=== PATIENT | male | born 1980 | race Caucasian/White ===

== ENCOUNTER 2017-10-08 17:11 | Emergency (ER) | payer MEDICAID ==
[~2017-10-08] VITALS: Ht 160 cm; Wt 78.9 kg
[2017-10-08 17:23] VITALS: BP 120/80; PULSE 100; RESP 16; TEMP 99.7; O2SAT 96
[2017-10-08] MEDS ORDERED: IBUPROFEN 800 MG TAB PO ONE (17:45)
--- NOTE | 2017-10-08 18:05 | PD ---
HPI Chief Complaint: Cold / Flu Symptoms Time Seen by Provider: 17:36 Travel History International Travel<30 days: No Contact w/Intl Traveler<30days: No Traveled to known affect area: No History of Present Illness HPI Patient is a 37-year-old male presenting to the emergency department for evaluation of headache, sore throat, cough, nasal congestion. Patient symptoms started 2 days ago. He has been taking extra strength Tylenol occasionally with no improvement of symptoms. Symptoms started gradually, getting worse which prompted his visit to emergency department today. He denies any nausea, vomiting, documented fevers, abdominal pain, chest pain or shortness of breath. He reports that when he coughs that worsens his headache. His headache pain is an 8/10 states it's throbbing. Headache is unrelieved with Tylenol. He does report a history of headaches in the past. Denies any visual changes. PFSH Past Medical History Medical History: Denies Significant Hx Past Surgical History Surgical History: No Previous Surgery Social History Alcohol Use: No Tobacco Use: No Substance Use: No Allergies-Medications (Allergen,Severity, Reaction): Coded Allergies: No Known Allergies (Unverified , 10/08/17) Reported Meds & Prescriptions Reported Meds & Active Scripts Active No Active Prescriptions or Reported Medications Review of Systems Except as stated in HPI: all other systems reviewed are Neg General / Constitutional: Positive: Chills, No: Fever Eyes: No: Blurred Vision HENT: Positive: Headaches, Sore Throat, Rhinitis, Congestion, No: Neck Pain, Earache Cardiovascular: No: Chest Pain or Discomfort Respiratory: Positive: Cough Gastrointestinal: No: Nausea, Vomiting, Abdominal Pain Physical Exam Narrative GENERAL: Well-developed, well-nourished, alert male. Appears uncomfortable, in no acute distress. SKIN: Warm and dry. HEAD: Atraumatic. Normocephalic. EYES: Pupils equal and round. No scleral icterus. No injection or drainage. ENT: No nasal bleeding or discharge. Mucous membranes pink and moist. Mild erythematous posterior pharynx with 1+ tonsillar hypertrophy. NECK: Trachea midline. No JVD. No meningeal signs noted. CARDIOVASCULAR: Regular rate and rhythm. RESPIRATORY: No accessory muscle use. Clear to auscultation. Breath sounds equal bilaterally. GASTROINTESTINAL: Abdomen soft, non-tender, nondistended. Hepatic and splenic margins not palpable. MUSCULOSKELETAL: Extremities without clubbing, cyanosis, or edema. No obvious deformities. NEUROLOGICAL: Awake and alert. No obvious cranial nerve deficits. Motor grossly within normal limits. Five out of 5 muscle strength in the arms and legs. Normal speech. PSYCHIATRIC: Appropriate mood and affect; insight and judgment normal. Data Data Last Documented VS Vital Signs Date Time Temp Pulse Resp B/P (MAP) Pulse Ox O2 Delivery O2 Flow Rate FiO2 10/08/17 17:23 99.7 100 16 120/80 (93) 96 Orders Orders Group A Rapid Strep Screen (10/08/17 17:41) Influenzae A/B Antigen (10/08/17 17:41) Ibuprofen (Motrin) (10/08/17 17:45) Chest, Pa & Lat (10/08/17 ) Strep Culture (Group A) (10/08/17 17:45) Ct Brain W/O Iv Contrast(Rout) (10/08/17 ) Iv Access Insert/Monitor (10/08/17 18:37) Prochlorperazine Inj (Compazine Inj) (10/08/17 18:45) Diphenhydramine Inj (Benadryl Inj) (10/08/17 18:45) Sodium Chlor 0.9% 1000 Ml Inj (Ns 1000 M (10/08/17 18:37) MDM Medical Decision Making Medical Screen Exam Complete: Yes Emergency Medical Condition: Yes Interpretation(s) Vital Signs Date Time Temp Pulse Resp B/P (MAP) Pulse Ox O2 Delivery O2 Flow Rate FiO2 10/08/17 17:23 99.7 100 16 120/80 (93) [address] 10/08/17 0000 Signed Impressions: Service Date/Time: Sunday, October 08, 2017 18:47 - CONCLUSION: 1. Partial opacification of the right maxillary sinus. 2. Normal CT brain without evidence of acute infarct, hemorrhage, mass or edema. Philip Hart MD Chest X-Ray 10/08/17 0000 Signed Impressions: Service Date/Time: Sunday, October 08, 2017 17:47 - CONCLUSION: Bibasilar airspace disease. Philip Hart MD Vital Signs Date Time Temp Pulse Resp B/P (MAP) Pulse Ox O2 Delivery O2 Flow Rate FiO2 10/08/17 17:23 99.7 100 16 120/80 (93) 96 Differential Diagnosis Viral syndrome versus strep versus influenza versus pneumonia versus other Narrative Course Patient is a 37-year-old male presented to emergency department with cold and flulike symptoms. He presented with a headache that appear more viral in nature initially. Patient's vital signs assessed, he has a very low-grade temp and is borderline tachycardic. Influenza and strep screen ordered and pending, chest x-ray ordered. Patient continued to complain of an excruciating headache despite ibuprofen, for this reason a CT scan of the brain was ordered. Chest x-ray which is read by the radiologist shows bibasilar airspace disease. Strep and influenza are both negative. Patient was given IV fluids, Benadryl and Compazine. He was reassessed after medication administration. He is resting comfortably, he reports an improvement in his headache. CT scan of the brain which is read by the radiologist shows partial opacity location of the right maxillary sinus. Normal CT of the brain without evidence of acute infarct, hemorrhage, mass or edema. Patient will be discharged home after administration of IV fluids. He will be given oral antibiotics as well as fluticasone nasal spray. He is encouraged to maintain adequate oral intake. He was encouraged to follow up with primary doctor return to emergency department for any new or worsening symptoms. Patient verbalizes understanding of instructions. Patient is stable for discharge. Diagnosis Primary Impression: Maxillary sinusitis Qualified Codes: J01.00 - Acute maxillary sinusitis, unspecified Additional Impression: Pneumonia Qualified Codes: J18.9 - Pneumonia, unspecified organism Referrals: [facility] Primary Care Physician Patient Instructions: Community Acquired Pneumonia (ED), General Instructions, Sinusitis (ED) Additional Instructions: Complete full course of antibiotics as prescribed Take ibuprofen as needed as directed for pain or fever Use nasal spray as directed Return to emergency department for any new or worsening symptoms Follow-up with your primary doctor or at the [facility] clinic Med/Other Pt SpecificInfo: Prescription(s) given Scripts Ibuprofen (Ibuprofen) 800 Mg Tab 800 MG PO Q6HR Y for PAIN, #40 TAB 0 Refills Prov: Shadia Farah 10/08/17 Amoxicillin (Amoxicillin) 875 Mg Tab 875 MG PO BID for Infection for 10 Days, #20 TAB 0 Refills Prov: Shadia Farah 10/08/17 Fluticasone Nasal [place] (Fluticasone Nasal [place]) 50 Mcg/Act Naspr 100 MCG EACH NARE DAILY for Allergy Management, #1 BOTTLE 0 Refills 50 mcg/spray Prov: Shadia Farah 10/08/17 Azithromycin (Azithromycin) 250 Mg Tab 250 MG PO DIRECTED for Infection, #6 TAB 0 Refills Take 2 tabs (500 mg) on day 1 then 1 tab daily x 4 days. Prov: Shadia Farah 10/08/17 Disposition: 01 DISCHARGE HOME Condition: Stable Shadia Farah Oct 08, 2017 18:05
--- NOTE | 2017-10-08 18:28 | RADRPT ---
EXAM DATE/TIME: 10/08/2017 17:47 [facility] COMPARISON: No previous studies available for comparison. INDICATIONS : Headache, cough and chest pain. MEDICAL HISTORY : None. SURGICAL HISTORY : ENCOUNTER: Initial ACUITY: 2 days PAIN SCORE: 8/10 LOCATION: Left chest FINDINGS: Bibasilar airspace disease is noted. Upper lung brown are clear. Heart and mediastinal structures appear normal. Osseous structures are intact. CONCLUSION: Bibasilar airspace disease. Philip Hart MD on October 08, 2017 at 18:26 Board Certified Radiologist. This report was verified electronically.
[2017-10-08] MEDS ORDERED: SODIUM CHLOR 0.9% 1000 ML INJ 1,000 ML IV ONE (18:37)
[2017-10-08] MEDS ORDERED: diphenhydrAMINE HCL 50 MG/ML VIAL IVP ONE (18:45)
[2017-10-08] MEDS ORDERED: PROCHLORPERAZINE INJ 10 MG/2 ML VIAL IVP ONE (18:45)
--- NOTE | 2017-10-08 19:20 | RADRPT ---
EXAM DATE/TIME: 10/08/2017 18:47 [facility] COMPARISON: No previous studies available for comparison. INDICATIONS : Pounding headache for 2 days, with cough. RADIATION DOSE: 56.15 CTDIvol (mGy) MEDICAL HISTORY : Migraines SURGICAL HISTORY : None. ENCOUNTER: Initial ACUITY: 2 days PAIN SCALE: 10/10 LOCATION: Bilateral frontal head TECHNIQUE: Multiple contiguous axial images were obtained of the head. Using automated exposure control and adj ustment of the mA and/or kV according to patient size, radiation dose was kept as low as reasonably a chievable to obtain optimal diagnostic quality images. DICOM format image data is available electro nically for review and comparison. FINDINGS: CEREBRUM: The ventricles are normal for age. No evidence of midline shift, mass lesion, hemorrhage or acute in farction. No extra-axial fluid collections are seen. POSTERIOR FOSSA: The cerebellum and brainstem are intact. The 4th ventricle is midline. The cerebellopontine angle i s unremarkable. EXTRACRANIAL: The visualized portion of the orbits is intact. The right maxillary sinus is partially opacified. SKULL: The calvaria is intact. No evidence of skull fracture. CONCLUSION: 1. Partial opacification of the right maxillary sinus. 2. Normal CT brain without evidence of acute infarct, hemorrhage, mass or edema. Philip Hart MD on October 08, 2017 at 19:16 Board Certified Radiologist. This report was verified electronically.
[2017-10-08] MEDS ORDERED: AZIT250T3 PO (19:49)
[2017-10-08] MEDS ORDERED: IBUP1TAB7 PO (19:49)
[2017-10-08] MEDS ORDERED: FLUT50SP EACH NARE (19:49)
[2017-10-08] MEDS ORDERED: AMOX875T PO (19:49)
== END 2017-10-08 19:50 | disposition home or self-care (01) ==
LOC: PHEFT 17:11
DX: J01.00 Acute maxillary sinusitis, unspecified (principal); J18.9 Pneumonia, unspecified organism
CPT/HCPCS: 70450; 71046; 87081; 87804; 87880; 96374; 96375; 99284; J0780; J1200; J7030